=== PATIENT | female | born 1935 | race Caucasian/White ===

== ENCOUNTER 2023-09-14 12:07 | Emergency (ER) | payer MEDICARE, SELFPAY ==
[2023-09-14 12:11] VITALS: BP 146/97; PULSE 88; RESP 15; TEMP 37.6; O2SAT 99
--- NOTE | 2023-09-14 12:52 | ED.GENADUL_ITS ---
Discharge Plan Disposition Patient Disposition: Home Condition: Stable Discharge Details Clinical Impression: Fracture of toe of left foot, Closed fracture of left great toe, Ankle fracture, Fall down stairs Primary Care Provider: Hunter Wharton ED Provider: Dale Lomeli Home Meds and New Rx's Prescriptions: Continued amlodipine 5 mg tablet Patient Comments: TAKE ONE TABLET BY MOUTH EVERY DAY simvastatin 20 mg tablet Patient Comments: TAKE 1 TABLET BY MOUTH EVERY DAY lorazepam 1 mg tablet Patient Comments: TAKE ONE TABLET BY MOUTH THREE TIMES A DAY MAXIMUM DAILY DOSE = 3 TABLETS Erivedge 150 mg capsule PO Discharge Instructions Instructions: Ankle Fracture (ED), Toe Fracture (ED), Fall Prevention for Older Adults (ED) Additional Instructions: Please use orthopedic boot and crutches. You may weight-bear as tolerated and progressively increase the amount of weight that you are placing on your foot. Use Tylenol for pain. Dose according to label. Please follow-up with orthopedics. Call to schedule follow-up appointment. Referrals: [facility] [Provider Group] Discharge Data Discharge Date/Time-TO BE ENTERED AT DEPARTURE: 09/14/23 15:56 HPI General Mode of arrival: ambulatory . Date/Time Provider Initiated Documentation: 09/14/23 12:24 . Limitations to Documentation: no limitations . Information obtained by: patient . HPI Narrative: 88-year-old female presents with chief complaint of left ankle and foot pain. Patient notes yesterday she fell down 4 stairs and twisted her left ankle. She believes she plantarflexed and inverted her ankle during the fall. No other injury sustained. She has had increasing pain and swelling since the fall. Patient denies pain elsewhere. Related Data Home Medications Medication Instructions Recorded Confirmed amlodipine 5 mg tablet mg 09/14/23 lorazepam 1 mg tablet mg 09/14/23 simvastatin 20 mg tablet mg 09/14/23 vismodegib 150 mg capsule mg PO 09/14/23 (Erivedge) Allergies Allergy/AdvReac Type Severity Reaction Status Date / Time propofol AdvReac Unknown Contraindic Verified 09/14/23 14:08 ated General Stated Complaint: Orthopedic LALA: 3 Review of Systems Musculoskeletal Musculoskeletal: Reports as per HPI Exam Cardio Rate: regular rate Rhythm: regular rhythm Other: 2+ dp Extrem Left lower extremity: ankle Details: tenderness Location: of the lateral malleolus, swelling Details: diffusely and ecchymosis and foot Details: tenderness Location: of the dorsal foot, edema Location: of the dorsal foot and ecchymosis (dorsal) Course Vital Signs Vital signs: Vital Signs Temperature 37.6 C H 09/14/23 12:11 Pulse 88 09/14/23 12:11 Respiratory Rate 15 09/14/23 12:11 Blood Pressure 146/97 H 09/14/23 12:11 Pulse Oximetry 99 09/14/23 12:11 Temperature 37.6 C H 09/14/23 12:11 Temperature Source Temporal Artery Scan 09/14/23 12:11 Pulse 88 09/14/23 12:11 Respiratory Rate 15 09/14/23 12:11 Respiratory Effort Normal 09/14/23 12:16 Blood Pressure 146/97 H 09/14/23 12:11 Blood Pressure Position Sitting 09/14/23 12:11 Pulse Oximetry 99 09/14/23 12:11 Oxygen Delivery Method Room Air 09/14/23 12:11 Oxygen Flow Rate 0 09/14/23 12:11 Pain Level 8 09/14/23 12:11 Medical Decision Making 1257 -- 88-year-old female here with injury to her left foot and ankle that occurred yesterday with fall down 4 steps. No other injury sustained. Patient does have significant swelling of the ankle and foot with tenderness over her lateral ankle and dorsal foot. Plan to obtain x-ray images to assess for fracture. I will give Tylenol and apply ice for pain. Patient neurovascular tact distally. 1515 --x-rays reviewed and interpreted by radiology:1. Mildly displaced lateral malleolar fracture with associated soft tissue swelling. 2. Nondisplaced fracture through the base of the proximal phalanx of the 5th toe. 3. Nondisplaced fracture through the base of the proximal 1st metatarsal bone. 4. Nondisplaced fracture through the base of the proximal phalanx of the great toe. Plan for walking boot and crutches. I reviewed ED presentation and course as well as xrays with Dr. Swenson - he recommends WBAT. Short walking boot that can be removed daily and outpatient followup in clinic. Quality:SDOH Health Related Social Needs: No Data to Display PFSH All Active Problems (Updated 09/14/23 @ 15:33 by Dale Lomeli MD) Fall down stairs (Acute) Ankle fracture (Acute) Closed fracture of left great toe (Acute) Fracture of toe of left foot (Acute) Fracture of phalanx of left foot, closed (Acute) Closed fracture of metatarsal bone of left foot (Acute) Closed left ankle fracture (Acute) Social History Smoking risk assessment performed?: No
--- NOTE | 2023-09-14 13:39 | DI.RAD_ITS ---
Exam(s) XR FOOT LT COMPLETE XR ANKLE LT COMPLETE EXAM: XR ANKLE LT COMPLETE and XR foot LT complete CLINICAL HISTORY: pain, inversion injury TECHNIQUE: 2D digital imaging was performed of the left foot and ankle. Six images were obtained. AP, lateral and oblique views were obtained. COMPARISON: CR XR FOOT LT COMPLETE from 09/14/2023 FINDINGS: BONES: There is an acute nondisplaced fracture of the medial aspect of the base of the proximal phala nx of the 5th toe. There is a fracture seen in the medial aspect of the base of the 1st meta tarsal bone (series 2, image 1 of the foot). There is a lucency seen through the medial aspect of the base of the proximal phalanx of the great toe suggesting a fracture. There is a mildly displaced fracture through the lateral malleolus best appreciated on the lateral view. No bony destructive lesion is s een. JOINTS:The ankle mortise is normally aligned. SOFT TISSUE: There is soft tissue swelling laterally about the ankle. IMPRESSION: 1. Mildly displaced lateral malleolar fracture with associated soft tissue swelling. 2. Nondisplaced fracture through the base of the proximal phalanx of the 5th toe. 3. Nondisplaced fracture through the base of the proximal 1st metatarsal bone. 4. Nondisplaced fracture through the base of the proximal phalanx of the great toe. DATA REPOSITORY: RADIATION DOSE DELIVERED:
--- NOTE | 2023-09-14 15:19 | W.ORTHOCONSU ---
Date of service: 09/14/23 Time of Service: 15:19 Assessment and Plan Assessment and plan (1) Closed left ankle fracture: Status: Acute (2) Closed fracture of metatarsal bone of left foot: Status: Acute (3) Fracture of phalanx of left foot, closed: Status: Acute Assessment and plan: 88-year-old female with mildly displaced Jeter A ankle fracture, small nondisplaced dorsal medial proximal first metatarsal base fracture, mildly displaced great toe and little toe proximal phalanx base fractures. Reviewed imaging, discussed with emergency room doctor. Ankle mortise stable, no Lisfranc injury. Recommend rest, ice, and elevation. Weightbearing as tolerated. Given advanced age, may use short CAM walker boot or any supportive footwear for ambulation for about 1 month. Any boot should be removed while seated, at night, and for skin care. Follow-up in about 2 weeks with podiatry or orthopedic surgery [facility] All Active Problems (Updated 09/14/23 @ 15:20 by Yunior Swenson MD) Fracture of phalanx of left foot, closed (Acute) Closed fracture of metatarsal bone of left foot (Acute) Closed left ankle fracture (Acute) Social History Smoking risk assessment performed?: No Results Last Vital Signs Temp 99.7 F H 09/14/23 12:11 Pulse 88 09/14/23 12:11 Resp 15 09/14/23 12:11 BP 146/97 H 09/14/23 12:11 Pulse Ox 99 09/14/23 12:11
[2023-09-14 15:56] VITALS: BP 140/88; PULSE 80; RESP 16; TEMP 37.2; O2SAT 99
== END 2023-09-14 15:56 | disposition home or self-care (01) ==
PROVIDERS: Emergency Provider Student in an Organized Health Care Education/Training Program; PCP Internal Medicine
DX: S92.515A Nondisplaced fracture of proximal phalanx of left lesser toe(s), initial encounter for closed fracture; S92.415A Nondisplaced fracture of proximal phalanx of left great toe, initial encounter for closed fracture; S82.62XA Displaced fracture of lateral malleolus of left fibula, initial encounter for closed fracture; R53.1 Weakness; W10.8XXA Fall (on) (from) other stairs and steps, initial encounter; Y93.01 Activity, walking, marching and hiking
CPT/HCPCS: 99283; 73610; 73630

== ENCOUNTER → 2023-09-20 13:14 | Outpatient (BNVA) | payer MEDICARE, SELFPAY | PROVIDERS: PCP Internal Medicine; Referring Provider Internal Medicine; Visit Provider Podiatrist | DX: S92.415A Nondisplaced fracture of proximal phalanx of left great toe, initial encounter for closed fracture (principal); S92.355A Nondisplaced fracture of fifth metatarsal bone, left foot, initial encounter for closed fracture; S82.65XA Nondisplaced fracture of lateral malleolus of left fibula, initial encounter for closed fracture; X58.XXXA Exposure to other specified factors, initial encounter | CPT/HCPCS: 29580; 99204; 29850 ==

== ENCOUNTER → 2023-09-28 01:15 | Outpatient (CLI) | payer MEDICARE, SELFPAY ==
--- NOTE | 2023-09-28 07:30 | DI.RAD_ITS ---
Exam(s) XR ANKLE LT 2V XR FOOT LT COMPLETE EXAM: XR FOOT LT COMPLETE and XR ankle LT 2 V CLINICAL HISTORY: Evaluate for healing, CLOSED FRACTURE LT GREAT TOE/PHALANX, S92.402A. TECHNIQUE: 2D digital imaging was performed of the left ankle and foot. Five images were obtained. AP, oblique and lateral views were obtained. COMPARISON: CR XR FOOT LT COMPLETE from 09/14/2023 CR XR ANKLE LT COMPLETE from 09/14/2023 FINDINGS: BONES: There has been no change in alignment of the medial aspect of the base of the proximal phalanx of the great toe. There has been interval mild displacement of the fracture involving the medial as pect of the base of the proximal phalanx of the 5th toe. The fracture through the medial aspect of t he base of the 1st metatarsal is not well visualized due to overlying material. The lateral malleola r fracture appears stable in alignment. No bony destructive lesion is seen. JOINTS: No dislocation present. SOFT TISSUE: Normal. IMPRESSION: 1. Stable alignment of the fractures involving the proximal phalanx of the great toe and the lateral malleolus. 2. Mild interval displacement of the fracture at the base of the proximal phalanx of the 5th toe. 3. The known fracture through the base of the 1st metatarsal could not be visualized on the current e xamination secondary to the bandages. DATA REPOSITORY: RADIATION DOSE DELIVERED:
== END ==
PROVIDERS: PCP Internal Medicine; Visit Provider Podiatrist
DX: S82.62XD Displaced fracture of lateral malleolus of left fibula, subsequent encounter for closed fracture with routine healing (principal); S92.355D Nondisplaced fracture of fifth metatarsal bone, left foot, subsequent encounter for fracture with routine healing; X58.XXXD Exposure to other specified factors, subsequent encounter
CPT/HCPCS: 73600; 73630

== ENCOUNTER → 2023-10-12 16:03 | Outpatient (CLI) | payer MEDICARE, SELFPAY ==
--- NOTE | 2023-10-12 13:27 | DI.RAD_ITS ---
Exam(s) XR FOOT LT COMPLETE EXAM: XR FOOT LT COMPLETE CLINICAL HISTORY: Lt great toe closed fx, S92.402A, S92.912A. TECHNIQUE: 2D digital imaging was performed of the left foot. Three images were obtained. AP, obli que and lateral views were obtained. COMPARISON: CR XR FOOT LT COMPLETE from 09/28/2023 FINDINGS: BONES: There is stable alignment of the mildly displaced fracture through the base of the proximal ph alanx of the 5th toe. There is also stable alignment of the fracture of the through the base of the proximal phalanx of the great toe. No bony destructive lesion is seen. JOINTS: No dislocation present. SOFT TISSUE: Normal. IMPRESSION: Stable fractures of the left foot. DATA REPOSITORY: RADIATION DOSE DELIVERED:
--- NOTE | 2023-10-12 13:27 | DI.RAD_ITS ---
Exam(s) XR ANKLE LT COMPLETE EXAM: XR ANKLE LT COMPLETE CLINICAL HISTORY: Ankle fx, S82.898A TECHNIQUE: 2D digital imaging was performed of the left ankle. Three images were obtained. AP, lat eral and oblique views were obtained. COMPARISON: CR XR ANKLE LT COMPLETE from 09/14/2023 CR XR ANKLE LT 2V from 09/28/2023 FINDINGS: BONES: No change in alignment of the oblique fracture of the lateral malleolus. No new fracture is s een. No bony destructive lesion is seen. JOINTS:The ankle mortise is normally aligned. SOFT TISSUE: Normal. IMPRESSION: Stable alignment of the distal fibular fracture. DATA REPOSITORY: RADIATION DOSE DELIVERED:
== END ==
PROVIDERS: PCP Internal Medicine; Visit Provider Podiatrist
DX: S82.62XD Displaced fracture of lateral malleolus of left fibula, subsequent encounter for closed fracture with routine healing; X58.XXXD Exposure to other specified factors, subsequent encounter; S92.515D Nondisplaced fracture of proximal phalanx of left lesser toe(s), subsequent encounter for fracture with routine healing
CPT/HCPCS: 73610; 73630

== ENCOUNTER → 2023-11-01 01:30 | Outpatient (CLI) | payer MEDICARE, SELFPAY ==
--- NOTE | 2023-11-01 08:30 | DI.RAD_ITS ---
Exam(s) XR FOOT LT COMPLETE XR ANKLE LT COMPLETE EXAM: XR ANKLE LT COMPLETE and XR foot LT complete CLINICAL HISTORY: Consolidation, closed fx lt great toe/foot, S92.402A, S92.912A, S92.302A TECHNIQUE: 2D digital imaging was performed of the left foot and ankle. Six images were obtained. AP, lateral and oblique views were obtained. COMPARISON: CR XR FOOT LT COMPLETE from 09/14/2023 CR XR ANKLE LT COMPLETE from 09/14/2023 CR XR FOOT LT COMPLETE from 10/12/2023 CR XR ANKLE LT COMPLETE from 10/12/2023 CR XR FOOT LT COMPLETE from 11/01/2023 FINDINGS: BONES: There has been no change in alignment of the distal left fibular fracture. There has been no change in alignment of the mildly displaced fracture involving the medial aspect of the base of the p roximal phalanx of the 5th toe. There is continued healing of the fracture through the medial aspect of the base of the proximal phalanx of the 1st toe. There is a hallux valgus deformity. The small fracture through the base of the 1st metatarsal bone is not visualized on the current examination. N o bony destructive lesion is seen. There is a small enthesophyte at the posterior calcaneus. JOINTS:The ankle mortise is normally aligned. SOFT TISSUE: Vascular calcifications are present. IMPRESSION: Stable alignment of the left ankle on foot fractures as described above. DATA REPOSITORY: RADIATION DOSE DELIVERED:
== END ==
PROVIDERS: PCP Internal Medicine; Visit Provider Podiatrist
DX: S92.402A Displaced unspecified fracture of left great toe, initial encounter for closed fracture (principal); S92.912A Unspecified fracture of left toe(s), initial encounter for closed fracture; S92.302A Fracture of unspecified metatarsal bone(s), left foot, initial encounter for closed fracture; S82.892A Other fracture of left lower leg, initial encounter for closed fracture; W10.8XXA Fall (on) (from) other stairs and steps, initial encounter; S82.899A Other fracture of unspecified lower leg, initial encounter for closed fracture
CPT/HCPCS: 73610; 73630

== ENCOUNTER 2024-11-15 10:27 | Outpatient (REF) | payer MEDICARE, SELFPAY ==
[2024-11-15 10:43] LABS: Abs Immature Grans 0.06 10^3/uL (0.0-0.06); HCT 32.2 % (36.0-46.0); HGB 11.0 g/dL (11.2-15.7); Immature Grans % 0.7 %; MCH 30.9 pg (27.0-33.0); MCHC 34.2 % (32.0-36.0); MCV 90 fL (80-95); MPV 9.6 fL (8.0-11.0); Platelet Count 398 10^3/uL (130-400); RBC 3.56 10^6/uL (3.93-5.22); RDW 14.7 % (11.7-14.6); RDW-SD 49.3 fL; WBC 8.08 10^3/uL (4.4-10.8)
[2024-11-15 11:10] LABS: ALT 31 U/L (14-59); AST 29 U/L (15-37); Albumin 2.9 g/dL (3.4-5.0); Alkaline Phosphatase 75 U/L (46-116); Anion Gap 11.4 mmol/L (3-11); BUN 11 mg/dL (7-18); Bilirubin, Total 0.3 mg/dL (0.2-1.0); CO2 24.6 mmol/L (21.0-32.0); Calcium 8.9 mg/dL (8.5-10.1); Chloride 92 mmol/L (98-107); Estimated GFR 70.83 (mL/min/1.73m2); Glucose 137 mg/dL (74-106); LDH 241 U/L (81-234); Potassium 4.1 mmol/L (3.5-5.1); Sodium 128 mmol/L (136-145); TSH 2.86 uIU/mL (0.36-3.74); Total Protein 7.5 g/dL (6.4-8.2)
== END 2024-11-15 10:28 | disposition home or self-care (01) ==
LOC: LBN 10:27
PROVIDERS: PCP Internal Medicine
DX: Z79.899 Other long term (current) drug therapy (principal); C44.91 Basal cell carcinoma of skin, unspecified
CPT/HCPCS: 80053; 83615; 84439; 84443; 85025

== ENCOUNTER 2024-12-06 13:07 | Outpatient (REF) | payer MEDICARE, SELFPAY ==
[2024-12-06 11:36] LABS: Abs Immature Grans 0.05 10^3/uL (0.0-0.06); HCT 27.3 % (36.0-46.0); HGB 9.4 g/dL (11.2-15.7); Immature Grans % 0.5 %; MCH 30.6 pg (27.0-33.0); MCHC 34.4 % (32.0-36.0); MCV 89 fL (80-95); MPV 9.4 fL (8.0-11.0); Platelet Count 389 10^3/uL (130-400); RBC 3.07 10^6/uL (3.93-5.22); RDW 14.1 % (11.7-14.6); RDW-SD 45.5 fL; WBC 10.17 10^3/uL (4.4-10.8)
[2024-12-06 12:52] LABS: ALT 18 U/L (14-59); AST 18 U/L (15-37); Albumin 2.4 g/dL (3.4-5.0); Alkaline Phosphatase 60 U/L (46-116); Anion Gap 9.9 mmol/L (3-11); BUN 9 mg/dL (7-18); Bilirubin, Total 0.2 mg/dL (0.2-1.0); CO2 23.1 mmol/L (21.0-32.0); Calcium 8.3 mg/dL (8.5-10.1); Chloride 94 mmol/L (98-107); Estimated GFR 70.83 (mL/min/1.73m2); Glucose 146 mg/dL (74-106); LDH 166 U/L (81-234); Potassium 3.7 mmol/L (3.5-5.1); Sodium 127 mmol/L (136-145); TSH 1.48 uIU/mL (0.36-3.74); Total Protein 6.8 g/dL (6.4-8.2)
== END 2024-12-06 13:08 | disposition home or self-care (01) ==
LOC: LBN 13:07
PROVIDERS: PCP Internal Medicine
DX: Z79.899 Other long term (current) drug therapy (principal); C44.91 Basal cell carcinoma of skin, unspecified
CPT/HCPCS: 80053; 83615; 84439; 84443; 85025

== ENCOUNTER 2025-02-28 00:47 | Outpatient (RCR) | payer MEDICARE, SELFPAY ==
[2025-02-07] MEDS: Normal Saline Flush 10 ML SYR IVP (14:32)
[2025-02-07 14:57] LABS: Abs Immature Grans 0.05 10^3/uL (0.0-0.06); HCT 30.0 % (36.0-46.0); HGB 9.9 g/dL (11.2-15.7); Immature Grans % 0.5 %; MCH 29.5 pg (27.0-33.0); MCHC 33.0 % (32.0-36.0); MCV 89 fL (80-95); MPV 8.8 fL (8.0-11.0); Platelet Count 409 10^3/uL (130-400); RBC 3.36 10^6/uL (3.93-5.22); RDW 16.9 % (11.7-14.6); RDW-SD 55.0 fL; WBC 9.84 10^3/uL (4.4-10.8)
[2025-02-07 15:22] LABS: ALT 29 U/L (14-59); AST 24 U/L (15-37); Albumin 3.1 g/dL (3.4-5.0); Alkaline Phosphatase 63 U/L (46-116); Anion Gap 8.9 mmol/L (3-11); BUN 17 mg/dL (7-18); Bilirubin, Total 0.3 mg/dL (0.2-1.0); CO2 28.1 mmol/L (21.0-32.0); Calcium 9.0 mg/dL (8.5-10.1); Chloride 99 mmol/L (98-107); Glucose 121 mg/dL (74-106); LDH 179 U/L (81-234); Potassium 4.4 mmol/L (3.5-5.1); Sodium 136 mmol/L (136-145); TSH 8.35 uIU/mL (0.36-3.74); Total Protein 8.1 g/dL (6.4-8.2)
[2025-02-28] MEDS: Normal Saline Flush 10 ML SYR IVP (10:29)
[2025-02-28 10:32] LABS: Abs Immature Grans 0.05 10^3/uL (0.0-0.06); HCT 30.5 % (36.0-46.0); HGB 10.2 g/dL (11.2-15.7); Immature Grans % 0.6 %; MCH 30.4 pg (27.0-33.0); MCHC 33.4 % (32.0-36.0); MCV 91 fL (80-95); MPV 8.7 fL (8.0-11.0); Platelet Count 372 10^3/uL (130-400); RBC 3.36 10^6/uL (3.93-5.22); RDW 16.6 % (11.7-14.6); RDW-SD 55.4 fL; WBC 7.79 10^3/uL (4.4-10.8)
[2025-02-28 11:00] LABS: ALT 28 U/L (14-59); AST 20 U/L (15-37); Albumin 2.8 g/dL (3.4-5.0); Alkaline Phosphatase 62 U/L (46-116); Anion Gap 10.1 mmol/L (3-11); BUN 11 mg/dL (7-18); Bilirubin, Total 0.3 mg/dL (0.2-1.0); CO2 24.9 mmol/L (21.0-32.0); Calcium 8.8 mg/dL (8.5-10.1); Chloride 97 mmol/L (98-107); Glucose 155 mg/dL (74-106); LDH 166 U/L (81-234); Potassium 3.8 mmol/L (3.5-5.1); Sodium 132 mmol/L (136-145); TSH 19.75 uIU/mL (0.36-3.74); Total Protein 7.8 g/dL (6.4-8.2)
== END 2025-02-28 23:59 | disposition home or self-care (01) ==
LOC: INF 00:47
PROVIDERS: PCP Internal Medicine; Visit Provider Internal Medicine Hospice and Palliative Medicine
DX: C44.91 Basal cell carcinoma of skin, unspecified (principal); Z79.899 Other long term (current) drug therapy; Z45.2 Encounter for adjustment and management of vascular access device
CPT/HCPCS: 36591; 80053; 83615; 84439; 84443; 85025

== ENCOUNTER 2025-02-28 13:23 | Emergency (ER) | payer MEDICARE, SELFPAY ==
[2025-02-28] VITALS (26 sets, daily range): BP systolic 103–134; BP diastolic 56–112; PULSE 69–125; RESP 10–28; TEMP 36.7; O2SAT 84–100
--- NOTE | 2025-02-28 13:15 | RT.EKG_ITS ---
APPROVED REPORT Exam: Resting ECG Reason for Exam: SOB Patient Location: E HR:81 bpm ECG Measurements Heart Rate 81 AXIS TN 175 P 35 QRSd 85 QRS 50 QT 381 T 34 QTc 444 Conclusion Sinus rhythm, rate 81 Motion artifact Within the limites of the exam, no STEMI No interval abnormalities No priors available for comparison
--- NOTE | 2025-02-28 13:30 | DI.CT_ITS ---
Exam(s) CT HEAD WO EXAM: CT HEAD WO CLINICAL HISTORY: Hx BCC, syncope and general weakness. TECHNIQUE: Imaging Protocol: Axial computed tomography images with coronal and sagittal reformatted images were created and reviewed COMPARISON: CT HEAD WITHOUT CONTRAST from 07/06/2007 FINDINGS: Ventricles and Extra axial spaces: Normal in size and morphology for the patient's age. Hemorrhage: None. Cerebral parenchyma: There are areas of decreased attenuation in the white matter consistent with chronic microvascular ischemic disease. There is no evidence of an acute territorial infarct or mass effect. Midline shift: None. Brainstem/Cerebellum: Normal. Calvarium: Normal. Visualized Paranasal sinuses/Mastoids: Clear. Soft Tissues: There is a large soft tissue mass overlying the right parietal bone measuring at least 5.5 AP by 1.7 transverse by 7.2 cm craniocaudad consistent with the patient's known basal cell carcinoma. The underlying bone is unremarkable. IMPRESSION: 1. No acute intracranial process. 2. Large soft tissue mass overlying the right parietal bone consistent with the patient's known carcinoma. 3. The findings were discussed with Dr. Mcdowell at 2:30 p.m. on 02/28/2025. RADIATION DOSE DELIVERED: 928.11mGy.cm Total DLP DATA REPOSITORY: All CT scans at this facility are submitted to the National Radiology Data Registry (NRDR) Dose Index Registry (DIR) with the [employer] (A[employer]). RADIATION OPTIMIZATION: All CT scans at this facility use at least one of these dose optimization techniques: automated exposure control; mA and/or kV adjustment per patient size (includes targeted exams where dose is matched to clinical indication); or iterative reconstruction.
[2025-02-28] MEDS: Lactated Ringers 1,000 ML 1000 ML IV (13:50)
[2025-02-28 13:53] LABS: Abs Immature Grans 0.04 10^3/uL (0.0-0.06); HCT 27.2 % (36.0-46.0); HGB 9.3 g/dL (11.2-15.7); Immature Grans % 0.4 %; MCH 30.2 pg (27.0-33.0); MCHC 34.2 % (32.0-36.0); MCV 88 fL (80-95); MPV 8.6 fL (8.0-11.0); Platelet Count 328 10^3/uL (130-400); RBC 3.08 10^6/uL (3.93-5.22); RDW 16.3 % (11.7-14.6); RDW-SD 53.1 fL; WBC 9.17 10^3/uL (4.4-10.8)
[2025-02-28 14:23] LABS: ALT 28 U/L (14-59); AST 22 U/L (15-37); Albumin 2.7 g/dL (3.4-5.0); Alkaline Phosphatase 60 U/L (46-116); Anion Gap 9.5 mmol/L (3-11); BUN 9 mg/dL (7-18); Bilirubin, Total 0.2 mg/dL (0.2-1.0); CO2 25.5 mmol/L (21.0-32.0); Calcium 8.5 mg/dL (8.5-10.1); Chloride 96 mmol/L (98-107); Glucose 85 mg/dL (74-106); Magnesium 1.9 mg/dL (1.8-2.4); Potassium 3.9 mmol/L (3.5-5.1); Sodium 131 mmol/L (136-145); TSH (W/Ref FT4) 14.71 uIU/mL (0.36-3.74); Total Protein 7.4 g/dL (6.4-8.2); Troponin I 5 ng/L (<or=51)
[2025-02-28 14:25] LABS: INR 1.0 (0.9-1.1); Prothrombin Time 9.8 sec (9.1-11.1)
--- NOTE | 2025-02-28 15:04 | W.ED.GENAD ---
Discharge Plan Disposition Patient Disposition: Home Condition: Stable Discharge Details Clinical Impression: Syncope, Basal cell carcinoma, Chemotherapy-induced fatigue Primary Care Provider: Hunter Wharton ED Provider: Carmen Maldonado Home Meds and New Rx's Prescriptions: No Action amlodipine 5 mg tablet 2.5 mg PO DAILY Patient Comments: TAKE ONE TABLET BY MOUTH EVERY DAY simvastatin 20 mg tablet 20 mg PO DAILY Patient Comments: TAKE 1 TABLET BY MOUTH EVERY DAY lorazepam 1 mg tablet 1 mg PO Q6H PRN Patient Comments: TAKE ONE TABLET BY MOUTH THREE TIMES A DAY MAXIMUM DAILY DOSE = 3 TABLETS Erivedge 150 mg capsule PO prednisone 5 mg tablet 5 mg PO DAILY Patient Comments: TAKE ONE TABLET BY MOUTH EVERY DAY gabapentin 100 mg capsule 100 mg PO DAILY Patient Comments: TAKE ONE CAPSULE BY MOUTH EACH NIGHT prochlorperazine maleate 10 mg tablet 10 mg PO Q6H PRN Patient Comments: TAKE ONE TABLET BY MOUTH EVERY 6 HOURS NEEDED FOR NAUSEA Discharge Instructions Instructions: Fainting, Adult ED Additional Instructions: You were seen in the emergency department today for evaluation after a fainting episode. In our department you had a full physical examination performed, you did have some evidence of mild anemia, but your laboratory studies were otherwise quite reassuring. You received IV fluids and this was successful in improving your symptoms. I am most suspicious for a fainting episode, you had no evidence on your CT scan to suggest intracranial bleeding, mass in your brain or other abnormalities which could have caused your fainting episodes. It is safe for you to go home and continue to rest as is typical after a chemotherapy day. I recommend that you maintain good hydration and nutrition and discussed this event with your outpatient providers. Thank you for allowing us to be part of your care. Discharge Data Discharge Date/Time-TO BE ENTERED AT DEPARTURE: 02/28/25 16:28 HPI General Mode of arrival: EMS. Date/Time Provider Initiated Documentation: 02/28/25 13:27. Limitations to Documentation: no limitations. Information obtained by: patient, family, EMS and old records reviewed. HPI Narrative: This is an 89-year-old female patient with a past medical history significant for extensive localized basal cell carcinoma on chemotherapy, presenting for evaluation of syncope. The patient had just completed a session of chemotherapy, and had an episode of loss of consciousness. The patient was seated and did not sustain trauma or injury. She did not have any seizure-like activity reported, but was slightly confused when she woke up. She has had no recent illness or injury, is currently feeling very systemically weak, very tired and fatigued, consistent with her historical chemotherapy days. She has been eating and drinking typically for her including breakfast this morning and had an EMS blood glucose in the 1 teens. The patient typically has significant fatigue after chemotherapy but has never had an episode of syncope like this. She did not have any headache, chest pain, or significant dizziness. Related Data Home Medications Medication Instructions Recorded Confirmed amlodipine 5 mg tablet 2.5 mg PO DAILY 09/14/23 02/28/25 lorazepam 1 mg tablet 1 mg PO Q6H PRN 09/14/23 02/28/25 simvastatin 20 mg tablet 20 mg PO DAILY 09/14/23 02/28/25 vismodegib 150 mg capsule mg PO 09/14/23 11/01/23 (Erivedge) gabapentin 100 mg capsule 100 mg PO DAILY 02/28/25 02/28/25 prednisone 5 mg tablet 5 mg PO DAILY 02/28/25 02/28/25 prochlorperazine maleate 10 mg 10 mg PO Q6H PRN 02/28/25 02/28/25 tablet Allergies Allergy/AdvReac Type Severity Reaction Status Date / Time propofol AdvReac Unknown Contraindic Verified 02/28/25 13:33 ated General Stated Complaint: [id number] LALA: 3 Exam Narrative Exam Narrative: Gen: awake and alert, in no apparent distress. Appears well nourished. HEENT: Scalp with no carcinoma lesion, PERRL, EOMs full and without nystagmus. External ears and nose normal, mucous membranes moist. Neck: Supple, full range of motion, no observable masses Lungs: No increased work of breathing, lung sounds clear and equal bilaterally without wheezes, rhonchi, or rales. CV: Heart with regular rate and rhythm, no murmurs auscultated. Strong and symmetrical radial pulses. Chest wall port in place Abdomen: Soft, nondistended, non-tender to palpation. No rigidity, rebound tenderness, or guarding. MSK: No joint swelling, no redness. Full ROM without limitation, no external traumatic findings. Skin: No rashes or lesions to visualized skin. Normal color, warm, and dry. Neuro: Cranial nerves II-XII intact and symmetrical bilaterally. 4/5 strength in all muscle groups x4 extremities but symmetrically weak. No sensory deficits. Has a baseline body tremor unchanged from her normal per family Psych: Appropriate for situation. Course Vital Signs Vital signs: Vital Signs Temperature 36.7 C 02/28/25 13:26 Pulse 75 02/28/25 13:26 Respiratory Rate 18 02/28/25 13:26 Blood Pressure 134/112 H 02/28/25 13:26 Pulse Oximetry 97 02/28/25 13:26 Temperature 36.7 C 02/28/25 13:26 Temperature Source Tympanic 02/28/25 13:26 Pulse 75 02/28/25 13:26 Respiratory Rate 15 02/28/25 13:38 Respiratory Effort Normal 02/28/25 13:38 Respiratory Depth Normal 02/28/25 13:38 Respiratory Pattern Normal 02/28/25 13:38 Blood Pressure 134/112 H 02/28/25 13:26 Pulse Oximetry 97 02/28/25 13:26 Oxygen Delivery Method Room Air 02/28/25 13:26 Oxygen Flow Rate 0 02/28/25 13:26 Pain Level 0 02/28/25 13:26 Lab/Test Results Lab/Test Results: Laboratory Tests Range/Units 02/28/25 02/28/25 13:44 14:02 WBC (4.4-10.8) 10^3/uL 9.17 RBC (3.93-5.22) 10^6/uL 3.08 L Hgb (11.2-15.7) g/dL 9.3 L Hct (36.0-46.0) % 27.2 L MCV (80-95) fL 88 MCH (27.0-33.0) pg 30.2 MCHC (32.0-36.0) % 34.2 RDW (11.7-14.6) % 16.3 H Plt Count (130-400) 10^3/uL 328 MPV (8.0-11.0) fL 8.6 Immature Gran % % 0.4 Neutrophils % % 68.1 Lymphocytes % % 18.3 Monocytes % % 13.1 Eosinophils % % 0.0 Basophils % % 0.1 Nucleated RBC % (0.0-0.3) % 0.0 Absolute Neutrophils (1.2-6.7) 10^3/uL 6.24 Absolute Lymphocytes (1.2-3.4) 10^3/uL 1.68 Absolute Monocytes (0.1-0.8) 10^3/uL 1.20 H Absolute Eosinophils (0.0-0.7) 10^3/uL 0.00 Absolute Basophils (0.0-0.2) 10^3/uL 0.01 PT (9.1-11.1) sec 9.8 INR (0.9-1.1) 1.0 Sodium (136-145) mmol/L 131 L Potassium (3.5-5.1) mmol/L 3.9 Chloride (98-107) mmol/L 96 L Carbon Dioxide (21.0-32.0) mmol/L 25.5 Anion Gap (3-11) mmol/L 9.5 BUN (7-18) mg/dL 9 Creatinine (0.55-1.02) mg/dL 0.7 Est GFR (CKD-EPI 2020) (mL/min/1.73m2) 83.13 Glucose (74-106) mg/dL 85 Calcium (8.5-10.1) mg/dL 8.5 Magnesium (1.8-2.4) mg/dL 1.9 Total Bilirubin (0.2-1.0) mg/dL 0.2 AST (15-37) U/L 22 ALT (14-59) U/L 28 Alkaline Phosphatase (46-116) U/L 60 Troponin I (<or=51) ng/L 5 Total Protein (6.4-8.2) g/dL 7.4 Albumin (3.4-5.0) g/dL 2.7 L TSH (0.36-3.74) uIU/mL 14.71 H Medical Decision Making This is an 89-year-old female patient presenting for evaluation of a syncopal episode. My differential includes but is not limited to orthostasis, vasovagal syncope, certainly considered arrhythmia, ACS, intracranial pathology including metastatic disease, intracranial hemorrhage, less likely stroke in this patient without focal neurodeficit. No seizure-like activity, considered anemia, metabolic and electrolyte derangement, dehydration, kidney injury, liver pathology. We obtained an EKG which shows a sinus rhythm with a rate of 81, without evidence of acute ischemic changes, prolonged QTc or other concerning findings. We will obtain a Noncon CT head, and labs to include CBC, CMP, magnesium, troponin, and TSH. I will provide her with a liter of IV fluids for rehydration in the setting of recent chemotherapy. - CT head reviewed by myself, showing no intracranial pathology to explain her symptoms. Laboratory studies show a anemia to 9.3 but no leukocytosis or neutropenia, no thrombocytopenia. Chemistry panel without significant electrolyte derangements, mild hyponatremia appreciated but no kidney dysfunction or liver disease. TSH is elevated but actually improved from most recent priors at 14, troponin was negative. After fluids the patient reports that she feels markedly improved, remains with a nonfocal neuroexam and is desiring of discharge home. I am most concerned for vasovagal syndrome in this patient given the improvement with fluid, and the timing immediately after chemotherapy. She is accompanied by family who can assist her with transfers, which is a typical need after chemotherapy. I counseled the patient on slow transitions, good hydration, and outpatient follow-up with her providers. At this time, the patient has had a full medical evaluation and is safe for discharge to home. They are hemodynamically stable, ambulatory, and tolerating PO. They are understanding of the follow-up plan and return precautions. They left our facility without incident. Carmen Maldonado MD [facility] All Active Problems (Updated 02/28/25 @ 16:03 by Carmen Maldonado MD) Chemotherapy-induced fatigue (Acute) Basal cell carcinoma (Acute) Syncope (Chronic) Fracture of phalanx of left foot, closed (Acute) Closed fracture of metatarsal bone of left foot (Acute) Closed left ankle fracture (Acute) Social History Smoking/Tobacco Use Status: Current-Occasional Smoking risk assessment performed?: Yes Alcohol Intake: never Drug use: Never Substance use type: does not use Housing: house Do you feel safe at home: Yes Do you feel safe in your relationship?: Yes
[2025-02-28 15:57] LABS: Troponin I 5 ng/L (<or=51)
== END 2025-02-28 16:28 | disposition home or self-care (01) ==
PROVIDERS: Emergency Provider Emergency Medicine; PCP Internal Medicine
DX: C44.91 Basal cell carcinoma of skin, unspecified (principal); T45.1X5A Adverse effect of antineoplastic and immunosuppressive drugs, initial encounter; R55 Syncope and collapse; R53.83 Other fatigue
CPT/HCPCS: 36415; 80053; 93005; 96360; 99284; 70450; 83735; 84443; 84484; 85025; 85610; 93010